=== PATIENT | female | born 1980 | race Caucasian/White ===

== ENCOUNTER 2020-09-28 07:02 | Emergency (ER) | payer OTHER ==
[2020-09-28 07:52] LABS: BASOPHIL 0.2 % (0-2); EOSINOPHIL 0.8 % (0-5); HCT 37.5 % (37.0-47.0); HGB 13.1 g/dl (12.5-16.0); LYMPHOCYTE 18.5 % (15-48); MCH 29.4 pg (25.0-31.0); MCHC 34.9 g/dL (32.0-36.0); MCV 84.3 fL (78.0-100.0); MONOCYTE 5.2 % (0-12); MPV 8.9 fL (6.0-9.5); NEUTROPHIL 74.8 % (41-80); NRBC 0; PLT 291 K/uL (150-400); RBC 4.45 M/uL (4.20-5.40); RDW 12.5 % (11.5-14.0); WBC 6.6 K/uL (4.0-10.5)
[2020-09-28 08:01] LABS: ALBUMIN 3.2 g/dL (3.4-5.0); BILIRUBIN - TOTAL 0.5 mg/dL (0.2-1.0); BUN/CREAT RATIO (CALC) 11.3 RATIO; CREATININE 0.53 mg/dL (0.51-0.95); GLOBULIN (CALCULATION) 3.8 g/dL; POTASSIUM 3.5 mmol/L (3.5-5.1)
[2020-09-28 11:17] LABS: BILIRUBIN NEGATIVE (NEGATIVE); BLOOD NEGATIVE Ery/uL (NEGATIVE); CLARITY CLEAR (CLEAR); COLOR YELLOW (YELLOW); GLUCOSE (U) NORMAL (NORMAL); LEUKOCYTES NEGATIVE Leu/uL (NEGATIVE); NITRITE NEGATIVE (NEGATIVE); PROTEIN NEGATIVE (NEGATIVE); SPECIFIC GRAVITY 1.025 (1.001-1.030); UROBILINOGEN 0.2 mg/dL (0.2-1.0)
[2020-09-28] MEDS ORDERED: ZOFRAN4 M1 PO (11:51)
== END 2020-09-28 12:45 | disposition home or self-care (01) ==
LOC: FER 07:02
PROVIDERS: Emergency Medicine
DX: O21.0 Mild hyperemesis gravidarum (principal); Z87.19 Personal history of other diseases of the digestive system; Z3A.11 11 weeks gestation of pregnancy
CPT/HCPCS: 36415; 76801; 80053; 81003; 85025; J2405; J7030

== ENCOUNTER 2021-04-15 07:01 | Inpatient (IN) | payer OTHER ==
[~2021-04-15] VITALS: Ht 170.2 cm; Wt 153.3 kg
[~2021-04-15 07:01] MED LIST: ZOFRAN4 M1 PO
[2021-04-15 08:20] LABS: HCT 30.7 % (37.0-47.0); HGB 9.6 g/dl (12.5-16.0); MCH 24.1 pg (25.0-31.0); MCHC 31.3 g/dL (32.0-36.0); MCV 77.1 fL (78.0-100.0); MPV 9.9 fL (6.0-9.5); RBC 3.98 M/uL (4.20-5.40); WBC 7.7 K/uL (4.0-10.5)
[2021-04-15] MEDS ORDERED: HUMULIN N100 UNIT/2 SC (11:21)
[2021-04-15] MEDS ORDERED: PRENATAL VITAM1 EA11 PO (11:22)
[2021-04-15] MEDS ORDERED: ACIPHEX20 MG PO (11:22)
[2021-04-16 06:34] LABS: HCT 27.8 % (37.0-47.0); HGB 8.7 g/dl (12.5-16.0); MCH 24.4 pg (25.0-31.0); MCHC 31.3 g/dL (32.0-36.0); MCV 77.9 fL (78.0-100.0); MPV 9.4 fL (6.0-9.5); RBC 3.57 M/uL (4.20-5.40); RDW 15.1 % (11.5-14.0); WBC 9.8 K/uL (4.0-10.5)
== END 2021-04-17 14:00 | disposition home or self-care (01) | DRG 784 ==
LOC: FFHC 07:01 → FOB 07:01 → FFHC 07:18 → FOB 07:19
PROVIDERS: Obstetrics & Gynecology; ADMIT Obstetrics & Gynecology
PROC: 0UB70ZZ Excision of Bilateral Fallopian Tubes, Open Approach (ICD-10-PCS; principal; 2021-04-15)
PROC: 10D00Z1 Extraction of Products of Conception, Low, Open Approach (ICD-10-PCS; 2021-04-15)
DX: O24.429 Gestational diabetes mellitus in childbirth, unspecified control (principal); D62 Acute posthemorrhagic anemia; Z37.0 Single live birth; O99.214 Obesity complicating childbirth; O34.211 Maternal care for low transverse scar from previous cesarean delivery; Z20.822 Contact with and (suspected) exposure to COVID-19; Z3A.39 39 weeks gestation of pregnancy; Z80.3 Family history of malignant neoplasm of breast; O99.02 Anemia complicating childbirth; Z30.2 Encounter for sterilization
CPT/HCPCS: 36415; 81001; 86850; 86900; 86901; J0456; J0690; J1650; J1885; J2274; J2370; J2916; J7050; J7120

== ENCOUNTER → 2021-08-20 | Day surgery (SDC) | payer OTHER ==
[~2021-08-20] VITALS: Ht 170.2 cm; Wt 137.9 kg
[~2021-08-20] MED LIST changes: +ACETAMINOPHEN500 M1 PO; +ACIPHEX20 MG PO; +COLACE100 MG PO; +HUMULIN N100 UNIT/2 SC; +IRON325 M1 PO; +MOTRIN600 MG PO; +OXY-IR 5MG5 MG PO; +PREBIOTIC PO; +PRENATAL VITAM1 EA11 PO; +PROBIOTIC1 EAC1 PO
[2021-08-20 07:12] LABS: HCG (URINE) SCREEN NEGATIVE (NEGATIVE)
[2021-08-20 07:47] LABS: ALBUMIN 3.5 g/dL (3.4-5.0); BILIRUBIN - TOTAL 0.4 mg/dL (0.2-1.0); BUN/CREAT RATIO (CALC) 18.1 RATIO; CREATININE 0.72 mg/dL (0.51-0.95); GLOBULIN (CALCULATION) 3.7 g/dL; POTASSIUM 4.3 mmol/L (3.5-5.1); TOTAL PROTEIN 7.2 g/dL (6.4-8.2)
== END | disposition home or self-care (01) ==
LOC: FAS 06:36
PROVIDERS: Student in an Organized Health Care Education/Training Program
DX: K80.10 Calculus of gallbladder with chronic cholecystitis without obstruction (principal); K21.9 Gastro-esophageal reflux disease without esophagitis; E66.01 Morbid (severe) obesity due to excess calories; Z68.42 Body mass index [BMI] 45.0-49.9, adult; Z91.040 Latex allergy status; Z79.899 Other long term (current) drug therapy
CPT/HCPCS: 36415; 80053; 82150; 83690; 84703; J1100; J1170; J1644; J2250; J2405; J2550; J2704; J2710; J3010; J7050; J7120; Q9967